=== PATIENT | female | born 1985 | race Caucasian/White ===

== ENCOUNTER 2020-01-01 09:38 | Emergency (ER) | payer BC, OTHER ==
[2020-01-01 10:03] VITALS: BP 132/82; PULSE 75
[2020-01-01 11:02] LABS: CHLORIDE,CL 103 mmol/L (98-107); SODIUM,NA 139 mmol/L (136-145)
[2020-01-01] MEDS ORDERED: Magnesium Citrate Solution 296 ML Bottle PO ONE (11:25)
[2020-01-01] MEDS ORDERED: Ondansetron 4 MG Tab.DIS PO ONE (11:25)
--- NOTE | 2020-01-01 11:30 | CR ---
PROCEDURE INFORMATION: Exam: XR Abdomen, 2 Views Exam date and time: 01/01/2020 11:07 AM Age: 34 years old Clinical indication: Abdominal pain; Localized; Right; Additional info: Right sided abdominal pain TECHNIQUE: Imaging protocol: XR of the abdomen. Views: 2 Views. COMPARISON: No relevant prior studies available. FINDINGS: Gastrointestinal tract: Normal. No bowel dilation. Intraperitoneal space: Normal. No free air. Organs: There is an IUD in place. Bones/joints: Unremarkable for age. IMPRESSION: No acute findings.
--- NOTE | 2020-01-01 11:34 | EDM.PDOC ---
Scribed by Coty Nelson 01/01/20 1033 for Steve Cuello MD ED HPI GENERAL MEDICAL PROBLEM - General Chief Complaint: Abdominal Pain Stated Complaint: STOMACH AND MID CHEST PAIN Time Seen by Provider: 01/01/20 10:01 Source of Information: Reports: Patient, RN, RN Notes Reviewed History Limitations: Reports: No Limitations - History of Present Illness INITIAL COMMENTS - FREE TEXT/NARRATIVE: Patient presents to ED by POV stating pain all over abdomen especially to the right lower quadrant that started a week ago. She also also has some epigastric pain. She is taking Gasex. She rates the pain 7/10. She did take some ibuprofen couple of days ago and taking Gasex. She had a BM yesterday, states 2 normal ones Onset: Gradual Duration: Getting Worse Location: Reports: Abdomen Quality: Reports: Ache Severity: Moderate Improves with: Reports: None Worsens with: Reports: None Associated Symptoms: Reports: No Other Symptoms Abdominal Pain Score (Numeric/FACES): 7 - Related Data Allergies Allergy/AdvReac Type Severity Reaction Status Date / Time Sulfa (Sulfonamide Allergy Swollen Verified 01/01/20 10:03 Antibiotics) Eyes Past Medical History - Past Health History Medical/Surgical History: Denies Medical/Surgical History ED ROS GENERAL - Review of Systems Review Of Systems: Comprehensive ROS is negative, except as noted in HPI. ED EXAM, GI/ABD - Physical Exam Exam: See Below Exam Limited By: No Limitations General Appearance: Alert, WD/WN, No Apparent Distress, Obese Eyes: Bilateral: Normal Appearance (No scleral icterus) Ears: Normal External Exam, Hearing Grossly Normal Nose: Normal Inspection, Normal Mucosa, No Blood Throat/Mouth: Normal Inspection, Normal Lips, Normal Teeth, Normal Gums, Normal Oropharynx, Normal Voice, No Airway Compromise Head: Atraumatic, Normocephalic Neck: Normal Inspection, Supple, Non-Tender, Full Range of Motion Respiratory/Chest: No Respiratory Distress, Lungs Clear, Normal Breath Sounds, No Accessory Muscle Use, Chest Non-Tender Cardiovascular: Normal Peripheral Pulses, Regular Rate, Rhythm, No Edema, No Gallop, No JVD, No Murmur, No Rub GI/Abdominal Exam: Normal Bowel Sounds, Soft, No Organomegaly, No Distention, Pelvis Stable, Tender (RUQ and RLQ tendernss, mild epigastric tenderness, no peritoneal signs). No: Guarding, Rigid, Rebound (Female) Exam: Deferred Rectal (Female) Exam: Deferred Back Exam: Normal Inspection, Full Range of Motion. No: CVA Tenderness (L), CVA Tenderness (R) Extremities: Normal Inspection, Normal Range of Motion, No Pedal Edema, Normal Capillary Refill Neurological: Alert, Oriented, CN II-XII Intact, Normal Cognition, Normal Gait, No Motor/Sensory Deficits Psychiatric: Normal Affect, Normal Mood Skin Exam: Warm, Dry, Intact, Normal Color, No Rash Course - Vital Signs Last Recorded V/S: Last Vital Signs Temp 96.3 F L 01/01/20 09:59 Pulse 75 01/01/20 09:59 Resp 16 01/01/20 09:59 BP 132/82 01/01/20 09:59 Pulse Ox 99 01/01/20 09:59 - Orders/Labs/Meds Labs: Laboratory Tests 01/01/20 01/01/20 01/01/20 Range/Units 10:24 10:24 10:37 WBC 12.0 H (5.0-10.0) 10^3/uL RBC 4.11 L (4.2-5.4) 10^6/uL Hgb 12.2 (12.0-16.0) g/dL Hct 36.9 L (37.0-47.0) % MCV 89.8 (80-100) fL MCH 29.7 (27.0-34.0) pg MCHC 33.1 (33.0-35.0) g/dL Plt Count 207 (150-450) 10^3/uL Neut % (Auto) 69.8 (42.2-75.2) % Lymph % (Auto) 22.3 (20.5-50.1) % [place] % (Auto) 6.9 (2-8) % Eos % (Auto) 0.8 L (1.0-3.0) % Baso % (Auto) 0.2 (0.0-1.0) % Sodium (136-145) mmol/L Potassium (3.5-5.1) mmol/L Chloride (98-107) mmol/L Carbon Dioxide (21-32) mmol/L Anion Gap (7-13) mEq/L BUN (7-18) mg/dL Creatinine (0.55-1.02) mg/dL Est Cr Clr Drug Dosing mL/min Estimated GFR (MDRD) BUN/Creatinine Ratio (No establ ref range) Glucose (74-99) mg/dL Calcium (8.5-10.1) mg/dL Total Bilirubin (0.2-1.0) mg/dL AST (15-37) U/L ALT (14-59) U/L Alkaline Phosphatase (46-116) U/L Total Protein (6.4-8.2) g/dL Albumin (3.4-5.0) g/dL Globulin Albumin/Globulin Ratio Amylase (25-115) U/L Lipase (73-393) U/L Urine Color Yellow (YELLOW) Urine Appearance Clear (CLEAR) Urine pH 8.5 (5.0-9.0) Ur Specific [place] 1.020 (1.005-1.030) Urine Protein Trace H (NEGATIVE) Urine Glucose (UA) Negative (NEGATIVE) Urine Ketones Negative (NEGATIVE) Urine Occult Blood Negative (NEGATIVE) Urine Nitrite Negative (NEGATIVE) Urine Bilirubin Negative (NEGATIVE) Urine Urobilinogen 0.2 (0.2-1.0) mg/dL Ur Leukocyte Esterase Negative (NEGATIVE) Urine RBC 0-5 /HPF Urine WBC 0-5 (0-5/HPF) /HPF Ur Epithelial Cells Few (NOT SEEN) /HPF Amorphous Sediment Rare (NOT SEEN) /HPF Urine Bacteria Few (0-FEW/HPF) /HPF Urine Mucus Rare (NOT SEEN) /LPF Urine HCG, Qual Negative 01/01/20 Range/Units 10:37 WBC (5.0-10.0) 10^3/uL RBC (4.2-5.4) 10^6/uL Hgb (12.0-16.0) g/dL Hct (37.0-47.0) % MCV (80-100) fL MCH (27.0-34.0) pg MCHC (33.0-35.0) g/dL Plt Count (150-450) 10^3/uL Neut % (Auto) (42.2-75.2) % Lymph % (Auto) (20.5-50.1) % [place] % (Auto) (2-8) % Eos % (Auto) (1.0-3.0) % Baso % (Auto) (0.0-1.0) % Sodium 139 (136-145) mmol/L Potassium 4.0 (3.5-5.1) mmol/L Chloride 103 (98-107) mmol/L Carbon Dioxide 28 (21-32) mmol/L Anion Gap 12.0 (7-13) mEq/L BUN 15 (7-18) mg/dL Creatinine 0.78 (0.55-1.02) mg/dL Est Cr Clr Drug Dosing 87.76 mL/min Estimated GFR (MDRD) > 60 BUN/Creatinine Ratio 19.2 (No establ ref range) Glucose 84 (74-99) mg/dL Calcium 8.9 (8.5-10.1) mg/dL Total Bilirubin 0.8 (0.2-1.0) mg/dL AST 14 L (15-37) U/L ALT 37 (14-59) U/L Alkaline Phosphatase 58 (46-116) U/L Total Protein 7.3 (6.4-8.2) g/dL Albumin 3.8 (3.4-5.0) g/dL Globulin 3.5 Albumin/Globulin Ratio 1.1 Amylase 34 (25-115) U/L Lipase 88 (73-393) U/L Urine Color (YELLOW) Urine Appearance (CLEAR) Urine pH (5.0-9.0) Ur Specific [place] (1.005-1.030) Urine Protein (NEGATIVE) Urine Glucose (UA) (NEGATIVE) Urine Ketones (NEGATIVE) Urine Occult Blood (NEGATIVE) Urine Nitrite (NEGATIVE) Urine Bilirubin (NEGATIVE) Urine Urobilinogen (0.2-1.0) mg/dL Ur Leukocyte Esterase (NEGATIVE) Urine RBC /HPF Urine WBC (0-5/HPF) /HPF Ur Epithelial Cells (NOT SEEN) /HPF Amorphous Sediment (NOT SEEN) /HPF Urine Bacteria (0-FEW/HPF) /HPF Urine Mucus (NOT SEEN) /LPF Urine HCG, Qual Meds: Medications Discontinued Medications Generic Name Dose Route Start Last Admin Trade Name Freq PRN Reason Stop Dose Admin Magnesium Citrate 296 ml 01/01/20 11:25 Citrate Of Magnesia PO 01/01/20 11:26 ONETIME ONE Ondansetron HCl 4 mg 01/01/20 11:25 Zofran Odt PO 01/01/20 11:26 ONETIME ONE - Radiology Interpretation Free Text/Narrative:: XR Abd: non-obstructive bowel gas pattern, moderately large fecal burden at ascending colon, see Rad. report. Departure - Departure Time of Disposition: 11:32 Disposition: Home, Self-Care 01 Condition: Good Clinical Impression: Abdominal pain Qualifiers: Abdominal location: generalized Qualified Code(s): R10.84 - Generalized abdominal pain Constipation Qualifiers: Constipation type: other constipation type Qualified Code(s): K59.09 - Other constipation - Discharge Information *PRESCRIPTION DRUG MONITORING PROGRAM REVIEWED*: Not Applicable *COPY OF PRESCRIPTION DRUG MONITORING REPORT IN PATIENT BONNIE: Not Applicable Instructions: Abdominal Pain, Adult, [id number], Constipation, Adult Forms: ED Department Discharge Additional Instructions: Drink plenty of water. High fiber diet with plenty of fresh fruits and vegetables. Avoid cheese, rice, and bananas. Follow up in clinic if not improved by Friday, January 02. Return to ER if worse at any time. Sepsis Event Note (ED) - Focused Exam Vital Signs: Vital Signs Temp Pulse Resp BP Pulse Ox 01/01/20 09:59 96.3 F L 75 16 132/82 99 I have read and agree with the documentation that has been completed regarding this visit. By signing this record, I attest that the documentation was completed in my physical presence and is an accurate record of the encounter.
== END 2020-01-01 11:40 | disposition home or self-care (01) ==
LOC: DL.ED 09:38
DX: K59.09 Other constipation (principal); R10.13 Epigastric pain; E66.9 Obesity, unspecified; Z88.2 Allergy status to sulfonamides; Z68.36 Body mass index [BMI] 36.0-36.9, adult
CPT/HCPCS: 36415; 74019; 80053; 81001; 81025; 82150; 83690; 85025; 99284; A9270

== ENCOUNTER 2020-04-12 07:21 | Day surgery (SDC) | payer OTHER ==
[2020-04-12] MEDS ORDERED: Ondansetron 4 MG/2 ML SDV IV ONE (07:22)
[2020-04-12] MEDS ORDERED: fentaNYL 100 MCG/2 ML SDV IV ONE (07:22)
[2020-04-12] MEDS ORDERED: Dexamethasone 4 MG/ML SDV IV ONE (07:22)
[2020-04-12] MEDS ORDERED: Glycopyrrolate 0.2 MG/ML 2 ML SDV IV ONE (07:22)
[2020-04-12] MEDS ORDERED: Midazolam 1 MG/ML 2 ML SDV IV ONE (07:22)
[2020-04-12] MEDS ORDERED: Succinylcholine 200 MG/10 ML MDV IV ONE (07:22)
[2020-04-12] MEDS ORDERED: Ketorolac 30 MG/ML SDV IVPUSH ONE (07:22)
[2020-04-12] MEDS ORDERED: Rocuronium 100 MG/10 ML MDV IV ONE (07:22)
[2020-04-12] MEDS ORDERED: Propofol 200 MG/20 ML SDV IV ONE (07:22)
[2020-04-12] MEDS ORDERED: Neostigmine Methylsulfate 10 MG/10 ML MDV IV ONE (07:22)
--- NOTE | 2020-04-12 08:42 | EDM.PDOC ---
ED HPI GENERAL MEDICAL PROBLEM - General Chief Complaint: Syncope Stated Complaint: COVID + Time Seen by Provider: 04/12/20 08:20 Source of Information: Reports: Patient, Old Records, RN, RN Notes Reviewed History Limitations: Reports: No Limitations - History of Present Illness INITIAL COMMENTS - FREE TEXT/NARRATIVE: The patient presents to the ED via personal vehicle with complaints of pre- syncope, nausea, and vaginal bleeding. She states this morning she was feeling nauseas and dizzy while sitting on the edge of her tub and her vision, "..went cloudy and I woke up on the floor." She states she did not hit her head, but slumped to the floor. Per the patient, her IUD was removed by her primary care provider last 04/05/20. Her bleeding began last 04/07/20; she states she has been saturating one pad every hour, with clots present. She states she has not updated Dr. Gould about this bleeding. She is unsure of her LMP since she did not have a cycle with her IUD. The patient states she also tested positive for COVID last 04/10/20. She does attest cough, nausea, and chills. She state her last fever was Friday04/07/20, at 101.5 - she has been afebrile since. She does attest to dyspnea upon exertion and chest pain with cough. She denies chest pain at rest or with exertion. She denies palpitations, dysuria, diarrhea, dark tarry stools, pain with stooling, or changes to her bowel/bladder patterns. She has not taken any medications for these problems. Right Lower Abdomen Pain Score (Numeric/FACES): 3 - Related Data Allergies Allergy/AdvReac Type Severity Reaction Status Date / Time Sulfa (Sulfonamide Allergy Swollen Verified 04/12/20 07:46 Antibiotics) Eyes Home Meds: Home Meds Sertraline [Zoloft] 25 mg PO DAILY 04/12/20 [History] hydroCHLOROthiazide [Hydrochlorothiazide] 12.5 mg PO DAILY 04/12/20 [History] Past Medical History - Past Health History Medical/Surgical History: Denies Medical/Surgical History HEENT History: Reports: None Cardiovascular History: Reports: None Respiratory History: Reports: None Gastrointestinal History: Reports: None Genitourinary History: Reports: None 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 Musculoskeletal History: Reports: None Neurological History: Reports: None Psychiatric History: Reports: None Endocrine/Metabolic History: Reports: None Hematologic History: Reports: None Immunologic History: Reports: None Oncologic (Cancer) History: Reports: None Dermatologic History: Reports: None - Infectious Disease History Infectious Disease History: Reports: Chicken Pox - Past Surgical History Head Surgeries/Procedures: Reports: None Female Surgical History: Reports: Section Other Female Surgeries/Procedures: eptoic Social & Family History - Tobacco Use Tobacco Use Status *Q: Never Tobacco User Second Hand Smoke Exposure: No - Caffeine Use Caffeine Use: Reports: Coffee - Recreational Drug Use Recreational Drug Use: No ED ROS GENERAL - Review of Systems Review Of Systems: Comprehensive ROS is negative, except as noted in HPI. - Physical Exam Exam: See Below Exam Limited By: No Limitations General Appearance: Alert, WD/WN, No Apparent Distress Eye Exam: Bilateral Eye: EOMI, Normal Inspection, PERRL Throat/Mouth: Normal Inspection, Normal Voice, No Airway Compromise Head Exam: Atraumatic, Normocephalic Neck: Normal Inspection, Supple, Non-Tender Respiratory/Chest: No Respiratory Distress, Lungs Clear, Normal Breath Sounds, No Accessory Muscle Use, Chest Non-Tender. No: Crackles, Rales, Rhonchi, Wheezing, Stridor Cardiovascular: Normal Peripheral Pulses, Regular Rate, Rhythm, No Edema, No Gallop, No Murmur, No Rub GI/Abdominal: Normal Bowel Sounds, Soft, No Distention, No Mass, Tender (RLQ pain; No rebound tenderness), Mass. No: Guarding, Rigid, Rebound Neuro Exam (Abbreviated): Alert, Oriented, CN II-XII Intact, Normal Cognition, Normal Gait, No Motor/Sensory Deficits Back Exam: Normal Inspection. No: CVA Tenderness (L), CVA Tenderness (R) Extremities: Normal Inspection, Normal Capillary Refill Skin Exam: Warm, Intact, Normal Color. No: Ecchymosis, Erythema, Mottled, Pallor, Petechiae, Rash #1 Interpretation EKG Date: 04/12/20 Time: 08:55 Rhythm: NSR Rate (Beats/Min): 72 [place]: Normal P-Wave: Present QRS: Normal ST-T: Normal QT: Normal Comparison: NA - No Prior EKG EKG Interpretation Comments: NSR; No evidence of ischemia Course - Vital Signs Last Recorded V/S: Last Vital Signs Temp 96.4 F L 04/12/20 07:39 Pulse 77 04/12/20 07:39 Resp 16 04/12/20 07:39 BP 101/57 L 04/12/20 07:39 Pulse Ox 97 04/12/20 07:39 - Orders/Labs/Meds Orders: Active Orders 24 hr Category Date Time Status EKG Documentation Completion [RC] STAT Care 04/12/20 08:17 Active Piperacillin/Tazobactam [Zosyn] 3.375 gm Med 04/12/20 11:05 Active Sodium Chloride 0.9% [Normal Saline] 100 ml IV ONETIME Medication Orders Piperacillin Sod/Tazobactam (Sod 3.375 gm/ Sodium Chloride) 100 mls @ 200 mls/hr IV ONETIME ONE Stop: 04/12/20 11:34 Labs: Laboratory Tests 04/12/20 04/12/20 04/12/20 Range/Units 08:27 08:27 08:27 WBC 12.6 H (5.0-10.0) 10^3/uL RBC 4.48 (4.2-5.4) 10^6/uL Hgb 13.3 (12.0-16.0) g/dL Hct 39.2 (37.0-47.0) % MCV 87.5 (80-100) fL MCH 29.7 (27.0-34.0) pg MCHC 33.9 (33.0-35.0) g/dL Plt Count 220 (150-450) 10^3/uL Neut % (Auto) 76.1 H (42.2-75.2) % Lymph % (Auto) 16.0 L (20.5-50.1) % [place] % (Auto) 6.8 (2-8) % Eos % (Auto) 1.0 (1.0-3.0) % Baso % (Auto) 0.1 (0.0-1.0) % Sodium 139 (136-145) mmol/L Potassium 4.2 (3.5-5.1) mmol/L Chloride 102 (98-107) mmol/L Carbon Dioxide 28 (21-32) mmol/L Anion Gap 13.2 H (7-13) mEq/L BUN 19 H (7-18) mg/dL Creatinine 0.85 (0.55-1.02) mg/dL Est Cr Clr Drug Dosing 79.77 mL/min Estimated GFR (MDRD) > 60 BUN/Creatinine Ratio 22.4 (No establ ref range) Glucose 93 (74-99) mg/dL Calcium 9.3 (8.5-10.1) mg/dL Total Bilirubin 0.7 (0.2-1.0) mg/dL AST 15 (15-37) U/L ALT 34 (14-59) U/L Alkaline Phosphatase 63 (46-116) U/L Troponin I < 0.017 (0.000-0.056) ng/mL Total Protein 7.9 (6.4-8.2) g/dL Albumin 3.8 (3.4-5.0) g/dL Globulin 4.1 Albumin/Globulin Ratio 0.9 Urine Color (YELLOW) Urine Appearance (CLEAR) Urine pH (5.0-9.0) Ur Specific [place] (1.005-1.030) Urine Protein (NEGATIVE) Urine Glucose (UA) (NEGATIVE) Urine Ketones (NEGATIVE) Urine Occult Blood (NEGATIVE) Urine Nitrite (NEGATIVE) Urine Bilirubin (NEGATIVE) Urine Urobilinogen (0.2-1.0) mg/dL Ur Leukocyte Esterase (NEGATIVE) Urine RBC /HPF Urine WBC (0-5/HPF) /HPF Ur Epithelial Cells (NOT SEEN) /HPF Amorphous Sediment (NOT SEEN) /HPF Urine Bacteria (0-FEW/HPF) /HPF Urine Mucus (NOT SEEN) /LPF Urine HCG, Qual 04/12/20 04/12/20 Range/Units 08:40 08:40 WBC (5.0-10.0) 10^3/uL RBC (4.2-5.4) 10^6/uL Hgb (12.0-16.0) g/dL Hct (37.0-47.0) % MCV (80-100) fL MCH (27.0-34.0) pg MCHC (33.0-35.0) g/dL Plt Count (150-450) 10^3/uL Neut % (Auto) (42.2-75.2) % Lymph % (Auto) (20.5-50.1) % [place] % (Auto) (2-8) % Eos % (Auto) (1.0-3.0) % Baso % (Auto) (0.0-1.0) % Sodium (136-145) mmol/L Potassium (3.5-5.1) mmol/L Chloride (98-107) mmol/L Carbon Dioxide (21-32) mmol/L Anion Gap (7-13) mEq/L BUN (7-18) mg/dL Creatinine (0.55-1.02) mg/dL Est Cr Clr Drug Dosing mL/min Estimated GFR (MDRD) BUN/Creatinine Ratio (No establ ref range) Glucose (74-99) mg/dL Calcium (8.5-10.1) mg/dL Total Bilirubin (0.2-1.0) mg/dL AST (15-37) U/L ALT (14-59) U/L Alkaline Phosphatase (46-116) U/L Troponin I (0.000-0.056) ng/mL Total Protein (6.4-8.2) g/dL Albumin (3.4-5.0) g/dL Globulin Albumin/Globulin Ratio Urine Color Red (YELLOW) Urine Appearance Turbid (CLEAR) Urine pH 5.0 (5.0-9.0) Ur Specific [place] 1.020 (1.005-1.030) Urine Protein >=300 H (NEGATIVE) Urine Glucose (UA) Negative (NEGATIVE) Urine Ketones 15 H (NEGATIVE) Urine Occult Blood Large H (NEGATIVE) Urine Nitrite Positive H (NEGATIVE) Urine Bilirubin Large H (NEGATIVE) Urine Urobilinogen 2.0 H (0.2-1.0) mg/dL Ur Leukocyte Esterase Large H (NEGATIVE) Urine RBC >100 H /HPF Urine WBC 0-5 (0-5/HPF) /HPF Ur Epithelial Cells Rare (NOT SEEN) /HPF Amorphous Sediment Occasional (NOT SEEN) /HPF Urine Bacteria Rare (0-FEW/HPF) /HPF Urine Mucus Rare (NOT SEEN) /LPF Urine HCG, Qual Negative Meds: Medications Generic Name Dose Route Start Last Admin Trade Name Freq PRN Reason Stop Dose Admin Piperacillin Sod/Tazobactam 100 mls @ 200 mls/hr 04/12/20 11:05 Sod 3.375 gm/ Sodium Chloride IV 04/12/20 11:34 ONETIME ONE - Radiology Interpretation Free Text/Narrative:: [facility] [place] [facility] Final Radiology Report with Addendum Call: [phone] assistance Online chat: [email or web address] Name: MARGARET RODRIGUEZ Age: 35Years F Date: 04/12/2020 SSN: -- : [id number] Study: CT ABDOMEN PELVIS WO CONT Requesting Physician: Andreia Gentile Images: [phone] Addl Studies: Provided Clinical History: RLQ pain; WBC 12; UTI on UA Contrast: Without Contrast Medium: Contrast Amount: Contrast Method: Page 1 of 2 Addendum created by Hailey Artis MD on 04/12/2020 10:41 AM Central Time ([place] & [place]): THIS REPORT CONTAINS FINDINGS THAT MAY BE CRITICAL TO PATIENT CARE. The findings were verbally communicated via telephone conference with Dr.Kimberly Gentile, at 9:59 AM EDT on 04/12/2020. The findings were acknowledged and understood. Recommend CT chest for further extent of possibly Covid pneumonitis. Initial Report created on 04/12/2020 10:37 AM Central Time ([place] & [place]): PROCEDURE INFORMATION: Exam: CT Abdomen And Pelvis Without Contrast Exam date and time: 04/12/2020 9:57 AM Age: 35 years old Clinical indication: Abdominal pain; Localized; Right lower quadrant (rlq); Additional info: Rlq pain; Wbc 12; UTI on ua TECHNIQUE: Imaging protocol: Computed tomography of the abdomen and pelvis without contras t. Radiation optimization: All CT scans at this facility use at least one of these dose optimization techniques: automated exposure control; mA and/or kV adjustment per patient size (includes targeted exams where dose is matched to clinical indication); or iterative reconstruction. COMPARISON: CR Abdomen 2V AP Flat Upright 01/01/2020 11:07 AM FINDINGS: Lungs: Right medial lower lobe airspace infiltrate is identified. Small left lingular ground-glass infiltrate is seen. There is no cardiomegaly. There is no pericardial effusion effusion. Liver: There is a diffuse decrease in hepatic parenchymal density, consistent with moderate fatty infiltration. The liver has a sagittal length of 16 cm. MARGARET RODRIGUEZ | Final Radiology Report CONFIDENTIALITY STATEMENT This report is intended only for use by the referring physician, and only in accordance with law. If you received this in error, call [phone]. Page 2 of 2 Gallbladder and bile ducts: Normal. No calcified stones. No ductal dilation. Pancreas: The pancreas is normal. Spleen: The spleen is normal. Adrenals: The adrenal glands are normal. Kidneys and ureters: Normal. No hydronephrosis. Stomach and bowel: Unremarkable. No obstruction. No mucosal thickening. Appendix: There is an 11 mm distended appendix with periappendiceal fatty stranding consistent with acute appendicitis. Intraperitoneal space: Unremarkable. No free air. No significant fluid collection. Vasculature: The aorta is normal. Lymph nodes: Unremarkable. No enlarged lymph nodes. Urinary bladder: Unremarkable as visualized. Reproductive: Unremarkable as visualized. Bones/joints: There is L5-S1 mild disc height loss. No acute fracture. Soft tissues: Unremarkable. IMPRESSION: 1. Findings compatible with acute appendicitis. 2. Mild hepatomegaly and fatty infiltration of the liver. 3. Right medial lower lobe and left peripheral ground-glass infiltrates suspicious for pneumonitis. Dr. Gentile confirms patient has tested positive for Covid. Thank you for allowing us to participate in the care of your patient. Dictated and Authenticated by: Hailey Esparza MD 04/12/2020 10:37 AM Central Time ([place] & [place]) - Re-Assessments/Exams Free Text/Narrative Re-Assessment/Exam: 04/12/20 08:30 Will obtain EKG, CBC, CMP, Troponin, UA, and Hcg. 04/12/20 09:01 EKG revealed NSR 04/12/20 09:29 CBC showing left shift. UA tainted d/t vaginal bleeding, negative for WBC and bacteria. Will obtain ABD/Pelvis w/o 04/12/20 10:48 Dr. Brown consulted for acute appendicitis - see report. 04/12/20 11:07 Dr. Brown to take patient to OR. Departure - Departure Time of Disposition: 11:08 Disposition: Admitted As Inpatient 66 Clinical Impression: Acute appendicitis Qualifiers: Acute appendicitis type: with localized peritonitis Appendicitis gangrene presence: unspecified whether gangrene present Appendicitis perforation presence: unspecified whether perforation present Appendicitis abscess presence: unspecified whether abscess present Qualified Code(s): K35.30 - Acute appendicitis with localized peritonitis, without perforation or gangrene - Discharge Information *PRESCRIPTION DRUG MONITORING PROGRAM REVIEWED*: Not Applicable *COPY OF PRESCRIPTION DRUG MONITORING REPORT IN PATIENT BONNIE: Not Applicable Forms: ED Department Discharge Additional Instructions: No anemia present on blood work. Follow up with Dr. Gould should vaginal bleeding persist. Sepsis Event Note (ED) - Evaluation Sepsis Screening Result: No Definite Risk - Focused Exam Vital Signs: Vital Signs Temp Pulse Resp BP Pulse Ox 04/12/20 07:39 96.4 F L 77 16 101/57 L 97 - My Orders Last 24 Hours: My Active Orders 04/12/20 08:17 EKG Documentation Completion [RC] STAT - Assessment/Plan Last 24 Hours: My Active Orders 04/12/20 08:17 EKG Documentation Completion [RC] STAT
[2020-04-12 09:01] LABS: ANION GAP 13.2 mEq/L (7-13); CHLORIDE,CL 102 mmol/L (98-107); SODIUM,NA 139 mmol/L (136-145)
--- NOTE | 2020-04-12 10:38 | CT ---
PROCEDURE INFORMATION: Exam: CT Abdomen And Pelvis Without Contrast Exam date and time: 04/12/2020 9:57 AM Age: 35 years old Clinical indication: Abdominal pain; Localized; Right lower quadrant (rlq); Additional info: Rlq pain; Wbc 12; UTI on ua TECHNIQUE: Imaging protocol: Computed tomography of the abdomen and pelvis without contrast. Radiation optimization: All CT scans at this facility use at least one of these dose optimization techniques: automated exposure control; mA and/or kV adjustment per patient size (includes targeted exams where dose is matched to clinical indication); or iterative reconstruction. COMPARISON: CR Abdomen 2V AP Flat Upright 01/01/2020 11:07 AM FINDINGS: Lungs: Right medial lower lobe airspace infiltrate is identified. Small left lingular ground-glass infiltrate is seen. There is no cardiomegaly. There is no pericardial effusion effusion. Liver: There is a diffuse decrease in hepatic parenchymal density, consistent with moderate fatty infiltration. The liver has a sagittal length of 16 cm. Gallbladder and bile ducts: Normal. No calcified stones. No ductal dilation. Pancreas: The pancreas is normal. Spleen: The spleen is normal. Adrenals: The adrenal glands are normal. Kidneys and ureters: Normal. No hydronephrosis. Stomach and bowel: Unremarkable. No obstruction. No mucosal thickening. Appendix: There is an 11 mm distended appendix with periappendiceal fatty stranding consistent with acute appendicitis. Intraperitoneal space: Unremarkable. No free air. No significant fluid collection. Vasculature: The aorta is normal. Lymph nodes: Unremarkable. No enlarged lymph nodes. Urinary bladder: Unremarkable as visualized. Reproductive: Unremarkable as visualized. Bones/joints: There is L5-S1 mild disc height loss. No acute fracture. Soft tissues: Unremarkable. IMPRESSION: 1. Findings compatible with acute appendicitis. 2. Mild hepatomegaly and fatty infiltration of the liver. 3. Right medial lower lobe and left peripheral ground-glass infiltrates suspicious for pneumonitis. Dr. Gentile confirms patient has tested positive for Covid.
[2020-04-12] MEDS ORDERED: Piperacillin/Tazobactam 3.375 GM in Sodium Chloride 0.9% 100 ML IV ONE (11:05)
[2020-04-12] MEDS ORDERED: Morphine 2 MG/ML SYRINGE IVPUSH PRN ×2 (13:39→15:38)
[2020-04-12] MEDS ORDERED: Ondansetron 4 MG/2 ML SDV IVPUSH PRN ×2 (13:39→15:38)
[2020-04-12] MEDS ORDERED: Acetaminophen/oxyCODONE 325-5 MG Tab PO PRN ×2 (13:39→15:38)
[2020-04-12] MEDS ORDERED: Sodium Chloride 0.9% 10 ML Syringe FLUSH PRN ×2 (13:42→15:39)
--- NOTE | 2020-04-12 14:17 | HP ---
INTRODUCTION: I was consulted to see this 35-year-old female in the emergency room for acute appendicitis. The patient has been sick over the last 24 hours. Of note, she is also positive for COVID. She has marked right lower quadrant abdominal pain that radiates into the back. She has positive Rovsing sign on physical exam. Her white blood cell count was elevated to 12.[address] scan shows markedly dilated appendix with surrounding stranding of the mesentery. PAST MEDICAL HISTORY: ALLERGIES: The patient has allergies to sulfa. CURRENT MEDICATIONS: Zoloft and hydrochlorothiazide. PAST SURGICAL HISTORY: Includes section x2. 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 She does not smoke. REVIEW OF SYSTEMS: Positive for well-controlled blood pressure. Otherwise, systems are negative. PHYSICAL EXAMINATION: HEENT: Normal. Chest: Lungs are clear bilaterally. Heart: Normal sinus rhythm. Abdomen: Markedly tender in the right lower quadrant. She has a lower midline abdominal incision. Extremities: Have good range of motion and no edema. Neurologic: Intact. ASSESSMENT: Acute appendicitis. PLAN: I discussed the risks, benefits, and expected outcomes of a laparoscopic appendectomy with this patient even though she is COVID positive. We will take the appropriate precautions for this and we will proceed to the operating room today. [facility] /[id number]
[2020-04-12] MEDS ORDERED: guaiFENesin 100 MG/5 ML Soln 5 ML UD Cup PO PRN (15:53)
[2020-04-12 17:14] VITALS: BP 105/70; PULSE 88
[2020-04-12] MEDS ORDERED: Piperacillin/Tazobactam 3.375 GM in Sodium Chloride 0.9% 100 ML IV SCH (18:00)
--- NOTE | 2020-04-12 19:53 | OR ---
DATE: 04/12/2020 PREOPERATIVE DIAGNOSIS: Acute appendicitis. POSTOPERATIVE DIAGNOSIS: Acute appendicitis. PROCEDURE: Laparoscopic appendectomy. ANESTHESIA: General. ESTIMATED BLOOD LOSS: Minimal. SPECIMEN: Appendix. INDICATION FOR PROCEDURE: This 35-year-old female presents to the emergency room with day long history of right lower quadrant abdominal pain. CT scan shows acute appendicitis and she has elevated white blood cell count. Of note, she is also positive for COVID. PROCEDURE IN DETAIL: After adequate preparation, a supraumbilical incision was made and a Veress needle placed intra-abdominally for insufflation. This was then exchanged for a 5 mm trocar and laparoscoped. She did have some lower midline incisions from her prior . I was able to, however, place 2 almost midline trocars, 1 infraumbilically and 1 at the suprapubic area. The appendix was identified and it was enveloped in a peritoneal veil over the cecum. This had to be incised. I decided to take the appendix out in a retrograde fashion using a window in the base of the appendix and then stapling the appendix off the cecum. The remaining part of the appendiceal mesentery was then stapled using a white staple load. Hemostasis was secured. No other intraabdominal abnormalities were noted. Air was desufflated from the abdomen and the trocars removed. Skin was closed with Vicryl. [facility] /[id number]
--- NOTE | 2020-04-12 20:10 | PCM.SN.2 ---
- Free Text/Narrative Note: Patient is stable this evening. PO liquid tolerated. Pain controlled. Able to be discharged. No restrictions on activity or diet. FU my clinic in Apr if needed. Percocet tabs #10 given for pain.
== END 2020-04-12 19:30 | disposition home or self-care (01) ==
LOC: DL.SDS 07:21 → DL.MS 07:21 → DL.SDS 07:21 → EDSTATUS 12:00 → DL.SDS 12:23 → DL.MS 13:40 → DL.SDS 13:40 → DL.MS 13:40 → UNDOADMIN 13:40 → DL.MS 19:30
PROVIDERS: ATTEND Surgery
DX: K35.33 Acute appendicitis with perforation, localized peritonitis, and gangrene, with abscess (principal); U07.1 COVID-19; I10 Essential (primary) hypertension; Z88.2 Allergy status to sulfonamides; Z79.899 Other long term (current) drug therapy
CPT/HCPCS: 00840; 36415; 44970; 74176; 80053; 81001; 81025; 84484; 85025; 93005; 96365; 99285; A9270; J0330; J1100; J1885; J2250; J2405; J2543; J2704; J2710; J3010; J3490; J7050

== ENCOUNTER 2021-04-04 20:35 | Emergency (ER) | payer OTHER ==
[2021-04-04 20:50] VITALS: BP 142/92; PULSE 93
--- NOTE | 2021-04-04 20:58 | EDM.PDOC ---
ED HPI GENERAL MEDICAL PROBLEM - General Stated Complaint: CHEST PAIN, DOESN'T FEEL RIGHT Time Seen by Provider: 04/04/21 20:55 Source of Information: Reports: Patient, RN, RN Notes Reviewed History Limitations: Reports: No Limitations - History of Present Illness INITIAL COMMENTS - FREE TEXT/NARRATIVE: Nani is a 36 y/o female who presents to the ED via personal vehicle with complaints of chest pain. The patient reports her symptoms began approximately four hours ago and has improved in that time, however she now notes transient nausea and bilateral upper quadrant abdominal pain. She characterizes the pain as sharp and rates it 4/10. She denies recent illness, fever, shaking chills, vision changes, dyspepsia, vomiting, abdominal pain, diarrhea, constipation, dysuria, or hematuria. Her last meal was at noon. Her last bowel movement was this morning. Her LMP was early last week. 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 She has been on Zoloft for about two years and recently started counseling related to her anxiety. Upper Abdomen Pain Score (Numeric/FACES): 4 - Related Data Allergies Allergy/AdvReac Type Severity Reaction Status Date / Time hydrocodone Allergy Swelling Verified 04/04/21 20:50 Sulfa (Sulfonamide Allergy Swollen Verified 04/04/21 20:50 Antibiotics) Eyes Home Meds: Home Meds Sertraline [Zoloft] 100 mg PO DAILY 04/12/20 [History] hydroCHLOROthiazide [Hydrochlorothiazide] 12.5 mg PO DAILY 04/12/20 [History] Past Medical History - Past Health History Medical/Surgical History: Denies Medical/Surgical History HEENT History: Reports: None Cardiovascular History: Reports: None Respiratory History: Reports: None Gastrointestinal History: Reports: None Genitourinary History: Reports: None 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 Musculoskeletal History: Reports: None Neurological History: Reports: None Psychiatric History: Reports: None Endocrine/Metabolic History: Reports: None Hematologic History: Reports: None Immunologic History: Reports: None Oncologic (Cancer) History: Reports: None Dermatologic History: Reports: None - Infectious Disease History Infectious Disease History: Reports: Chicken Pox - Past Surgical History Head Surgeries/Procedures: Reports: None Female Surgical History: Reports: Section Other Female Surgeries/Procedures: eptoic Social & Family History - Caffeine Use Caffeine Use: Reports: Coffee ED ROS GENERAL - Review of Systems Review Of Systems: Comprehensive ROS is negative, except as noted in HPI. ED EXAM, GENERAL - Physical Exam Exam: See Below Exam Limited By: No Limitations General Appearance: Alert, No Apparent Distress Eye Exam: Bilateral Eye: EOMI, Normal Inspection, PERRL (3mm) Ears: Normal External Exam, Hearing Grossly Normal Nose: Normal Inspection, Normal Mucosa, No Blood Throat/Mouth: Normal Inspection, Normal Oropharynx, Normal Voice, No Airway Compromise Head: Atraumatic, Normocephalic Neck: Normal Inspection, Supple, Non-Tender, Full Range of Motion. No: Lymphadenopathy (L), Lymphadenopathy (R) Respiratory/Chest: No Respiratory Distress, Lungs Clear, Normal Breath Sounds, No Accessory Muscle Use, Chest Non-Tender Cardiovascular: Normal Peripheral Pulses, Regular Rate, Rhythm, No Gallop, No Murmur, No Rub Peripheral Pulses: 2+: Radial (L), Radial (R) GI/Abdominal: Normal Bowel Sounds, Soft, Non-Tender, No Distention, No Abnormal Bruit, No Mass, Pelvis Stable (Female) Exam: Deferred Rectal (Female) Exam: Deferred Back Exam: Normal Inspection, Full Range of Motion Extremities: Normal Inspection, Normal Range of Motion, Non-Tender, No Pedal Edema, Normal Capillary Refill Neurological: Alert, Oriented, CN II-XII Intact, Normal Cognition, Normal Gait, No Motor/Sensory Deficits Psychiatric: Normal Affect, Normal Mood Skin Exam: Warm, Dry, Intact, Normal Color, No Rash. No: Cyanosis, Jaundice, Mottled, Pallor #1 Interpretation EKG Date: 04/04/21 Time: 20:48 Rhythm: NSR Rate (Beats/Min): 82 [place]: Normal P-Wave: Present QRS: Normal ST-T: Normal QT: Normal RI/PQ Interval: 0.156 Comparison: No Change EKG Interpretation Comments: NSR; q-wave in III; No evidence of acute myocardial ischemia Course - Vital Signs Last Recorded V/S: Last Vital Signs Temp 98.6 F 04/04/21 20:39 Pulse 93 04/04/21 20:39 Resp 18 04/04/21 20:39 BP 142/92 H 04/04/21 20:39 Pulse Ox 97 04/04/21 20:39 - Orders/Labs/Meds Labs: Laboratory Tests 04/04/21 04/04/21 Range/Units 20:59 20:59 WBC 8.7 (5.0-10.0) 10^3/uL RBC 4.15 L (4.2-5.4) 10^6/uL Hgb 12.3 (12.0-16.0) g/dL Hct 36.5 L (37.0-47.0) % MCV 88.0 (80-100) fL MCH 29.6 (27.0-34.0) pg MCHC 33.7 (33.0-35.0) g/dL Plt Count 202 (150-450) 10^3/uL Neut % (Auto) 58.5 (42.2-75.2) % Lymph % (Auto) 33.4 (20.5-50.1) % [place] % (Auto) 6.2 (2-8) % Eos % (Auto) 1.7 (1.0-3.0) % Baso % (Auto) 0.2 (0.0-1.0) % Sodium 140 (136-145) mmol/L Potassium 3.3 L (3.5-5.1) mmol/L Chloride 101 (98-107) mmol/L Carbon Dioxide 29 (21-32) mmol/L Anion Gap 13.3 H (7-13) mEq/L BUN 11 (7-18) mg/dL Creatinine 0.81 (0.55-1.02) mg/dL Est Cr Clr Drug Dosing 82.91 mL/min Estimated GFR (MDRD) > 60 BUN/Creatinine Ratio 13.6 (No establ ref range) Glucose 144 H (70-99) mg/dL Calcium 8.7 (8.5-10.1) mg/dL Total Bilirubin 0.4 (0.2-1.0) mg/dL AST 15 (15-37) U/L ALT 30 (14-59) U/L Alkaline Phosphatase 57 (46-116) U/L Troponin I High Sens < 4 (<=51) pg/mL C-Reactive Protein 0.9 (0.0-0.9) mg/dL B-Natriuretic Peptide 10 (0-100) pg/ml Total Protein 7.5 (6.4-8.2) g/dL Albumin 3.8 (3.4-5.0) g/dL Globulin 3.7 Albumin/Globulin Ratio 1.0 Amylase 41 (25-115) U/L Lipase 117 (73-393) U/L Ethyl Alcohol < 3 (0) mg/dL Meds: Medications Discontinued Medications Generic Name Dose Route Start Last Admin Trade Name Timq PRN Reason Stop Dose Admin Al Hydroxide/Mg Hydroxide 30 ml 04/04/21 21:06 04/04/21 21:16 Gi Cocktail Oral Solution 30 Ml PO 04/04/21 21:07 30 ml ONETIME ONE Administration Aspirin 324 mg 04/04/21 21:06 04/04/21 21:14 Aspirin 81 Mg Tab.Chew PO 04/04/21 21:07 324 mg ONETIME ONE Administration - Radiology Interpretation Free Text/Narrative:: [facility] Final Radiology Report Call: [phone] assistance Online chat: [email or web address] Name: NANI RODRIGUEZ Age: 36Years F Date: 04/04/2021 SSN: -- : 1985 Study: CR CHEST 1V FRONTAL Requesting Physician: Andreia Gentile Images: 1 Addl Studies: Provided Clinical History: Chest pain Contrast: Contrast Medium: Contrast Amount: Contrast Method: CONFIDENTIALITY STATEMENT This report is intended only for use by the referring physician, and only in accordance with law. If you received this in error, call [phone]. Page 1 of 1 PROCEDURE INFORMATION: Exam: XR Chest Exam date and time: 04/04/2021 9:11 PM Age: 36 years old Clinical indication: Pain; Other: Chest; Additional info: Chest pain TECHNIQUE: Imaging protocol: XR of the chest. Views: 1 view. COMPARISON: CT Abdomen Pelvis wo Cont 04/12/2020 9:57 AM FINDINGS: Lungs: Unremarkable. No consolidation. Pleural spaces: Unremarkable. No pleural effusion. No pneumothorax. Heart/Mediastinum: Unremarkable. No cardiomegaly. Bones/joints: Unremarkable. IMPRESSION: No acute findings. Thank you for allowing us to participate in the care of your patient. Dictated and Authenticated by: Ja De Dios MD 04/04/2021 10:19 PM Central Time ([place] & [place]) - Re-Assessments/Exams Free Text/Narrative Re-Assessment/Exam: 04/04/21 ASA 325mg and GI cocktail administered while labs pending. EKG and CXR obtained. Patient verbalized improvement in bilateral upper quadrant pain following medication administration. Findings of examination, imaging, EKG, and lab work reviewed with patient. Supportive cares discussed. Patient instructed to follow up with PCP regarding today's visit. Red flag signs and symptoms which would warrant immediate reevaluation reviewed. Patient verbalized understanding and agreement with the plan of care. Departure - Departure Time of Disposition: 22:44 Disposition: Home, Self-Care 01 Condition: Good Clinical Impression: Atypical chest pain, Anxiety as acute reaction to exceptional stress Instructions: Nonspecific Chest Pain, Adult, Managing Anxiety, Adult Forms: ED Department Discharge Additional Instructions: 1.) Continue on your previously prescribed medications. 2.) Follow up with your primary care provider regarding today's visit in 2-3 days. 3.) Return to the emergency department with any return of symptoms. Sepsis Event Note (ED) - Focused Exam Vital Signs: Vital Signs Temp Pulse Resp BP Pulse Ox 04/04/21 20:39 98.6 F 93 18 142/92 H 97
[2021-04-04] MEDS ORDERED: Aspirin 81 MG Tab.Chew PO ONE (21:06)
[2021-04-04] MEDS ORDERED: GI Cocktail Oral Solution 30 ML PO ONE (21:06)
[2021-04-04 21:25] LABS: ANION GAP 13.3 mEq/L (7-13); CHLORIDE,CL 101 mmol/L (98-107); SODIUM,NA 140 mmol/L (136-145)
--- NOTE | 2021-04-04 22:20 | CR ---
PROCEDURE INFORMATION: Exam: XR Chest Exam date and time: 04/04/2021 9:11 PM Age: 36 years old Clinical indication: Pain; Other: Chest; Additional info: Chest pain TECHNIQUE: Imaging protocol: XR of the chest. Views: 1 view. COMPARISON: CT Abdomen Pelvis wo Cont 04/12/2020 9:57 AM FINDINGS: Lungs: Unremarkable. No consolidation. Pleural spaces: Unremarkable. No pleural effusion. No pneumothorax. Heart/Mediastinum: Unremarkable. No cardiomegaly. Bones/joints: Unremarkable. IMPRESSION: No acute findings.
== END 2021-04-04 22:56 | disposition home or self-care (01) ==
LOC: DL.ED 20:35
DX: R07.89 Other chest pain (principal); F41.9 Anxiety disorder, unspecified; F43.9 Reaction to severe stress, unspecified; Z88.5 Allergy status to narcotic agent; Z88.2 Allergy status to sulfonamides
CPT/HCPCS: 36415; 71045; 80053; 80307; 82150; 83690; 83880; 84484; 85025; 86140; 93005; 99285; A9270